=== PATIENT | male | born 1955 | race Caucasian/White ===

== ENCOUNTER 2018-02-27 08:44 | Day surgery (SDC) | payer MEDICARE ==
[~2018-02-27] VITALS: Ht 170.2 cm; Wt 63.6 kg
--- NOTE | ~2018-02-27 | OP ---
PATIENT NAME: JUHI FRENCH MEDICAL RECORD: [id number] :57 LOCATION:[facility] ADMISSION DATE: SURGEON: MUSHTAQ GILLILAND DO DATE OF OPERATION: 02/27/2018 PROCEDURE: EGD with biopsies. INDICATIONS FOR PROCEDURE: Heartburn. SCOPE: Olympus video gastroscope. MEDICATIONS: Propofol 200 mg IV per anesthesia. ESTIMATED BLOOD LOSS: Minimal. COMPLICATIONS: None. FINDINGS: Informed consent was given. The patient was made comfortable with the above medication. After reaching an adequate level of sedation by slow IV push, the patient was placed on his left side. The endoscope was advanced under direct visualization through the mouth to the second portion of the duodenum. The upper, middle, and lower thirds of the esophagus appeared normal. 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 Two cold forceps biopsies were taken from the site to submit for histopathology and to rule out the presence of Weaver's. If Weaver's is present, this is a short segment. The endoscope was advanced beyond the GE junction into the stomach and retroflexed to view the cardia, where a small sliding hiatal hernia was present. The mucosa of the stomach appeared normal. There were multiple benign-appearing fundic gland type polyps in the fundus and body of the stomach. Multiple cold forceps biopsies were taken from the antrum and prepyloric region to submit for histopathology and to rule out the presence of H. pylori. The endoscope was advanced beyond the pylorus into the duodenum. The entire examined duodenum appeared normal. The endoscope was withdrawn from the patient. The patient tolerated the procedure well and there were no complications. IMPRESSION: 1. 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 Biopsies pending. 2. Small sliding hiatal hernia. 3. Multiple benign appearing fundic gland gastric polyps. PLAN AND RECOMMENDATIONS: 1. Discharge home when recovery parameters are met. 2. Follow up biopsy specimen results. 3. Continue current medications including omeprazole 20 mg daily. 4. GERD diet and reflux precautions. 5. If biopsies indicate presence of Weaver's, a recall will be made for 2 years for surveillance of short segment Weaver's. TRANSINT:[id number] Voice Confirmation ID: [id number] DOCUMENT ID: [id number] OPERATIVE REPORT [id number] JUHI FRENCHMUSHTAQ KUHN DO at 0800 CC: [id number] DICTATION DATE: 02/27/18 1058 CHEMICAL ANALYST: 02/27/18 1203 [facility] [place] 02/27/18 [id number] [place] [address]
[2018-02-27 09:27] LABS: INR 1.09 (0.85-1.17); PROTIME 13.6 SECONDS (11.6-15.0)
[2018-02-27 09:28] LABS: APTT 28.6 SECONDS (22.8-39.4)
[2018-02-27] MEDS ORDERED: ALDACTONE50 MG PO (09:45)
[2018-02-27] MEDS ORDERED: NORVASC10 MG PO (09:46)
[2018-02-27] MEDS ORDERED: NEURONTIN 300300 MG PO (09:46)
[2018-02-27] MEDS ORDERED: ISOSORBIDE MONO30 M1 PO (09:47)
[2018-02-27] MEDS ORDERED: ALBUTEROL SULF8.5 GM INH (09:48)
[2018-02-27] MEDS ORDERED: OMEPRAZOLE20 M1 (09:48)
[2018-02-27] MEDS ORDERED: PLAVIX75 MG (09:49)
[2018-02-27] MEDS ORDERED: SINGULAIR10 MG PO (09:49)
[2018-02-27] MEDS ORDERED: ADVAIR DISKU AER 250 ×2 (09:50→09:51)
[2018-02-27] MEDS ORDERED: ZOLOFT100 MG (09:51)
[2018-02-27] MEDS ORDERED: CRESTOR10 MG PO (09:52)
[2018-02-27] MEDS ORDERED: ATARAX 25 MG TA25 MG PO (09:54)
[2018-02-27 10:08] LABS: HEMATOCRIT 41.8 % (42.0-54.0); HEMOGLOBIN 13.5 g/dL (13.5-17.5); MCH 27.3 pg (26.0-34.0); MCHC 32.3 g/dL (31.0-37.0); MCV 84.6 fL (80.0-100.0); MEAN PLATELET VOLUME 10.2 fL (7.4-10.4); RBC 4.94 10x6/uL (4.20-6.10); RDW 14.5 % (11.5-14.5); WBC 7.7 10x3/uL (4.8-10.8)
[2018-02-27 10:10] VITALS: BP 147/75; Ht 170.2 cm; Wt 63.6 kg
== END 2018-02-27 11:37 | disposition home or self-care (01) ==
LOC: D.OPS 08:44
PROVIDERS: Anesthesiology
DX: K21.0 Gastro-esophageal reflux disease with esophagitis (principal); K44.9 Diaphragmatic hernia without obstruction or gangrene; K31.7 Polyp of stomach and duodenum

== ENCOUNTER → 2018-03-13 07:11 | Day surgery (SDC) | payer MEDICARE ==
[~2018-03-13] VITALS: Ht 170.2 cm; Wt 63.2 kg
[~2018-03-13 07:11] MED LIST: ADVAIR DISKU AER 250; ALBUTEROL SULF8.5 GM INH; ALDACTONE50 MG PO; ATARAX 25 MG TA25 MG PO; CRESTOR10 MG PO; ISOSORBIDE MONO30 M1 PO; NEURONTIN 300300 MG PO; NORVASC10 MG PO; OMEPRAZOLE20 M1; PLAVIX75 MG; RESTORIL15 MG PO; SINGULAIR10 MG PO; ZOLOFT100 MG
[2018-03-13 07:35] LABS: HEMATOCRIT 38.9 % (42.0-54.0); HEMOGLOBIN 12.5 g/dL (13.5-17.5); MCH 26.8 pg (26.0-34.0); MCHC 32.1 g/dL (31.0-37.0); MCV 83.5 fL (80.0-100.0); MEAN PLATELET VOLUME 9.9 fL (7.4-10.4); RBC 4.66 10x6/uL (4.20-6.10); RDW 14.7 % (11.5-14.5); WBC 7.2 10x3/uL (4.8-10.8)
[2018-03-13 07:44] LABS: CALC OSMOLALITY 276 mosm/kg (275-300); CALCIUM 8.6 mg/dL (8.5-10.1); CARBON DIOXIDE 30.4 mmol/L (21.0-32.0); CHLORIDE - SERUM 101 mmol/L (98-107); CREATININE - SERUM 0.8 mg/dL (0.6-1.3); GLUCOSE 93 mg/dL (74-106); POTASSIUM - SERUM 3.5 mmol/L (3.5-5.1); SODIUM 140 mmol/L (136-145); UREA NITROGEN 7 mg/dL (7-18); eGFR NON AFRICAN AMERICAN > 90 mL/min (90-120)
[2018-03-13 08:16] VITALS: BP 122/51; Ht 170.2 cm; Wt 63.2 kg
[2018-03-13 08:27] LABS: APTT 29.9 SECONDS (22.8-39.4); INR 1.12 (0.85-1.17); PROTIME 13.9 SECONDS (11.6-15.0)
--- NOTE | 2018-03-13 11:22 | NUR ---
1105 IV REMOVED WITH CATHALON INTACT. SITE COVERED WITH BANDAID. PRESSURE APPLIED. NO BLEEDING NOTED 1115 ALL DISCHARGE INSTRUCTIONS GIVEN. VOICES UNDERSTANDING. ABLE TO TOLERATE FULL LIQUIDS WITHOUT DIFFICULTY. DC'D HOME WITH BROTHER. ADVISED TO CALL OR COME BACK IF ANY PROBLEMS.
--- NOTE | 2018-03-18 17:43 | OP ---
PATIENT NAME: JUHI FRENCH MEDICAL RECORD: [id number] :57 LOCATION:[facility] ADMISSION DATE: SURGEON: MUSHTAQ GILLILAND DO DATE OF OPERATION: 03/13/2018 PROCEDURE: Colonoscopy with polypectomy. INDICATIONS FOR PROCEDURE: Screening for colorectal cancer. SCOPE: Olympus video pediatric colonoscope. MEDICATIONS: Propofol 360 mg IV per anesthesia. WITHDRAWAL TIME: 15 minutes. ESTIMATED BLOOD LOSS: Minimal. COMPLICATIONS: None. FINDINGS AND DESCRIPTION OF PROCEDURE: Informed consent was given. The patient was made comfortable with the above medication. After reaching an adequate level of sedation by slow IV push, the patient was placed on his left side. A digital rectal examination was performed and was normal other than prostatic hyperplasia. The endoscope was advanced under direct visualization through the rectum to the cecum, confirmed by the presence of the appendiceal orifice and ileocecal valve. The endoscope was slowly withdrawn and mucosa was carefully examined. Prep quality was good. There was a single polyp visualized today. It was located in the ascending colon. It was a benign appearing sessile polyp, which measured approximately 1 cm in size. It was removed using endoscopic mucosal resection technique with a saline pillow followed by hot snare polypectomy in 1 piece. The polyp was retrieved. There were no other polyps seen today. There were no diverticula. Retroflexion was performed in the rectum with visualization of grade I internal hemorrhoids without active bleeding. The endoscope was withdrawn from the patient. The patient tolerated the procedure well and there were no complications. IMPRESSIONS: 1. A single polyp was removed today from the ascending colon using EMR technique. 2. Internal hemorrhoids without active bleeding. PLAN AND RECOMMENDATIONS: 1. Discharge home when recovery parameters are met. 2. High fiber diet. 3. Continue current medications. 4. Recall colonoscopy in 3 years unless pathology of polyps removed today dictates otherwise. TRANSINT:[id number] Voice Confirmation ID: [id number] DOCUMENT ID: [id number] OPERATIVE REPORT [id number] JUHI FRENCH MUSHTAQ GILLILAND DO at 1740 CC: [id number] DICTATION DATE: 03/13/18 1025 [place] SALESPERSON: 03/13/18 1202 [facility] 03/13/18 [place] [address]
== END | disposition home or self-care (01) ==
LOC: D.OPS 07:11
PROVIDERS: Anesthesiology
DX: Z12.11 Encounter for screening for malignant neoplasm of colon (principal); D12.2 Benign neoplasm of ascending colon; K64.0 First degree hemorrhoids; Z01.812 Encounter for preprocedural laboratory examination